=== PATIENT | female | born 1990 | race Caucasian/White ===

== ENCOUNTER 2016-10-02 11:11 | Day surgery (SDC) ==
[2014-01-22 13:35] VITALS: BMI 38.4
[2016-10-02] MEDS ORDERED: LIDOCAINE 1% 20 ML MDV ID ONE (11:51)
[2016-10-02] MEDS ORDERED: LIDOCAINE 1% 20 ML MDV ONE (11:51)
[2016-10-02] MEDS ORDERED: ALBUTEROL 0.083% NEB NEB STA (11:53)
[2016-10-02 11:54] LABS: URINE PREGNANCY INTERNAL QC INTERNAL QC VALID
[2016-10-02] MEDS ORDERED: SUFENTA IVP ONE (12:30)
[2016-10-02] MEDS ORDERED: NEOSTIGMINE IVP ONE (12:30)
[2016-10-02] MEDS ORDERED: ZEMURON ONE (12:30)
[2016-10-02] MEDS ORDERED: VERSED ONE (12:30)
[2016-10-02] MEDS ORDERED: DIPRIVAN 20 ML VIAL IVP ONE (12:30)
[2016-10-02] MEDS ORDERED: ROBINOL ONE (12:30)
[2016-10-02 15:17] VITALS: BP 116/74; TEMP 97.8
--- NOTE | 2016-10-04 13:09 | OP ---
PREOPERATIVE DIAGNOSIS: TONSILLITIS POSTOPERATIVE DIAGNOSIS: TONSILLITIS OPERATION: TONSILLECTOMY PROCEDURE: The patient was taken to surgery, placed on the table and general anesthesia was administered. A Morales-Ck mouth gag was inserted and nasopharynx was inspected. No evidence of adenoid tissue noted. The right tonsil was grasped in the area of the superior pole and incision was made along the anterior tonsillar pillar. Dissection carried out inferiorly and tonsil was removed. [id number] suture of 0 chromic was placed at the base of the tongue. Identical procedure was performed of the other tonsil where again figure-of- eight suture of 0 chromic was placed at the base of the tongue. The patient's mouth and oropharynx were irrigated copiously with saline, extubated and the patient returned to the recovery room in satisfactory condition. LEYDI
--- NOTE | 2016-10-04 13:13 | DS ---
DISCHARGE DIAGNOSIS: 1. TONSILLECTOMY SUMMARY: This is a 26-year-old patient who underwent a tonsillectomy on 10/02/16. The patient did well postoperatively and was instructed to return to the office in 3 weeks. Diet as tolerated. Activity as tolerated. The patient was released on Amoxicillin and Tylox with Codeine for pain and Morrow 7.5. MTDD
== END 2016-10-02 15:03 | disposition home or self-care (01) ==
LOC: SURG 11:11
PROVIDERS: ATTEND Otolaryngology
DX: J03.90 Acute tonsillitis, unspecified (principal)
CPT/HCPCS: 81025; 94640

== ENCOUNTER 2017-02-18 08:44 | Emergency (ER) ==
[2017-02-18 08:48] VITALS: BP 147/80; TEMP 97.6; BMI 32.9
--- NOTE | 2017-02-18 10:14 | ED.PDOC ---
General ED Provider: Dr. TJ ESPINOZA Chief Complaint: Foot Pain/Injury Stated Complaint: foot pain left Time Seen by Physician: 09:00 (fall a few days ago) Mode of Arrival: Walk-In Information Source: Patient Exam Limitations: No limitations Primary Care Provider: ANGELICA GONZALEZ Nursing and Triage Documentation Reviewed and Agree: Yes Musculoskeletal Complaint Exam - Ankle/Foot Complaint/Exam Location of Injury: Reports: Left, Ankle, Foot Mechanism of Injury: Reports: Trauma Onset/Duration: fall 3 days ago Symptoms Are: Reports: Still present Onset of Pain: Reports: Days Initial Severity: Moderate Current Severity: Moderate Character: Reports: Aching, Spasmodic Alleviating: Reports: Rest, Position Aggravating: Reports: None Able to Bear Weight: Yes Related History: Reports: Similar episode Gout Risk Factors: Reports: None Related Surgical History: Reports: None Achilles Tendon Abnormality: No Tenderness: Present: Lateral malleolus, Midfoot Limited Range of Motion: Present: Inversion, Eversion Differential Diagnosis: Closed Fracture Review of Systems - Review Of Systems Constitutional: Reports: No symptoms Eyes: Reports: No symptoms Ears, Nose, Mouth, Throat: Reports: No symptoms Respiratory: Reports: No symptoms Cardiac: Reports: No symptoms GI: Reports: No symptoms : Reports: No symptoms Musculoskeletal: Reports: Joint pain Skin: Reports: No symptoms Neurological: Reports: No symptoms Endocrine: Reports: No symptoms Hematologic/Lymphatic: Reports: No symptoms All Other Systems: Reviewed and Negative Past Medical History - Past Medical History Previously Healthy: Yes Endocrine: Reports: None Cardiovascular: Reports: None Respiratory: Reports: None Hematological: Reports: None Gastrointestinal: Reports: None Genitourinary: Reports: None Neuro/Psych: Reports: None Musculoskeletal: Reports: None Cancer: Reports: None Last Menstrual Period: 01/11/17 - Surgical History General Surgical History: Reports: None - Family History Family History: Reports: None - Social History Smoking Status: Never smoker Hx Substance Use: No Alcohol Screening: Occasionally Physical Exam - Physical Exam Appearance: Well-appearing, No pain distress, Well-nourished Eyes: MEAGHAN, EOMI, Conjunctiva clear ENT: Ears normal, Nose normal, Oropharynx normal Respiratory: Airway patent, Breath sounds clear, Breath sounds equal, Respirations nonlabored Cardiovascular: RRR, Pulses normal, No rub, No murmur GI/: Soft, Nontender, No masses, Bowel sounds normal, No Organomegaly Musculoskeletal: Limited ROM (left foot no gross evidence of injury) Skin: Warm, Dry, Normal color Neurological: Sensation intact, Motor intact, Reflexes intact, Cranial nerves intact, Alert, Oriented Psychiatric: Affect appropriate, Mood appropriate Interpretation - Radiology Interpretation Radiology Interpretation By: Radiologist Critical Care Note - Critical Care Note Total Time (mins): 0 Course - Course Orders, Labs, Meds: Orders Category Date Time Status ANKLE, LEFT MIN 3 VIEWS Stat RADS 02/18/17 08:58 Taken FOOT, LEFT 3 VIEWS Stat RADS 02/18/17 08:58 Taken Vital Signs: Temp Pulse Resp BP Pulse Ox 02/18/17 08:45 97.6 F 83 16 147/80 H 96 Departure - Departure Time of Disposition: 11:00 Disposition: HOME SELF-CARE Discharge Problem: Injury of foot Instructions: Arthralgia (ED), Foot Sprain (ED) Condition: Good Pt referred to PMD for follow-up: Yes Additional Instructions: Please call your Family Physician as soon as possible to schedule a follow-up appointment. Allergies/Adverse Reactions: Allergies No Known Allergies Allergy (Verified 02/18/17 08:47) Home Medications: Ambulatory Orders Dextroamphetamine/Amphetamine [Adderall 10 mg Tablet] 10 mg PO DAILY 10/02/16 Disposition Discussed With: Patient
--- NOTE | 2017-02-18 10:16 | DI ---
EXAM: Three views of the left ankle. History: Left ankle pain. Findings: No acute fracture or dislocation. No abnormal calcifications or radiopaque foreign bodies . Joint spaces are preserved. Impression: No acute osseous abnormality
--- NOTE | 2017-02-18 10:16 | DI ---
EXAM: Three views of the left foot. History: Left foot trauma. Findings: No acute fracture or dislocation. No abnormal calcifications or radiopaque foreign bodies . Joint spaces are preserved. Impression: No acute osseous abnormality
== END 2017-02-18 10:25 | disposition home or self-care (01) ==
LOC: ED 08:44
DX: M79.672 Pain in left foot (principal); S99.922A Unspecified injury of left foot, initial encounter; W19.XXXA Unspecified fall, initial encounter
CPT/HCPCS: 99283

== ENCOUNTER 2017-05-08 17:13 | Observation (INO) ==
--- NOTE | 2017-05-08 17:56 | ED.PDOC ---
General ED Provider: Dr. TJ ESPINOZA Stated Complaint: chest pain Time Seen by Physician: 17:20 (seen with farhat ) Mode of Arrival: Walk-In Information Source: Patient Exam Limitations: No limitations Nursing and Triage Documentation Reviewed and Agree: Yes Reviewed sepsis parameters & appropriate labs ordered?: Yes System Inflammatory Response Syndrome: Not Applicable Sepsis Protocol: For patient's 13 years and over: Temp is 96.8 and below OR 101 and greater Pulse >90 BPM Resp >20/minute Acutely Altered Mental Status Are patient's symptoms suggestive of a new infection, such as: -Pneumonia -Skin, Soft Tissue -Endocarditis -UTI -Bone, Joint Infection -Implantable Device -Acute Abdominal Infection -Wound Infection -Meningitis -Blood Stream Catheter Infection -Unknown System Inflammatory Response Syndrome: Not Applicable Cardiovascular Complaint Exam - Chest Pain Complaint/Exam Onset: Gradual Duration: 5 hours Symptoms Are: Still present Timing: Constant Length of Chest Pain Episodes: 6 hrs Initial Severity: Mild Current Severity: Mild Location: Reports: Midsternal Pain Radiates: Reports: None Character: Reports: Dull Aggravating: Reports: None Alleviating: Reports: Upright position, Spontaneous resolution Associated Signs and Symptoms: Reports: Cough. Denies: Diaphoresis, Nausea, Vomiting, Fever, Palpitations, Hemoptysis, Back pain, Abdominal pain, Dizziness , Short of air, Calf pain, Calf swelling Related History: Reports: Similar episode Related Surgical History: Reports: None History of Healthcare-Acquired Pneumonia: Reports: No AMI/ACS Risk Factors: Reports: None TAD Risk Factors: Reports: None Pulmonary Embolism Risk Factors: Reports: None Prior Care for this Complaint: No Recent Stress Test: No Recent Echo/LV Function: No JVD Present: No Subcutaneous Emphysema Present: No Diminshed Breath Sounds: No Reproducible Chest Wall Pain: No Bilateral Pulses Present: No Unequal Pulses Noted: No Review of Systems - Review Of Systems Constitutional: Reports: No symptoms Eyes: Reports: No symptoms Ears, Nose, Mouth, Throat: Reports: No symptoms Respiratory: Reports: No symptoms Cardiac: Reports: No symptoms GI: Reports: No symptoms : Reports: No symptoms Musculoskeletal: Reports: No symptoms Skin: Reports: No symptoms Neurological: Reports: No symptoms Endocrine: Reports: No symptoms Hematologic/Lymphatic: Reports: No symptoms All Other Systems: Reviewed and Negative Past Medical History - Past Medical History Previously Healthy: Yes Endocrine: Reports: None Cardiovascular: Reports: None Respiratory: Reports: None Hematological: Reports: None Gastrointestinal: Reports: None Genitourinary: Reports: None Neuro/Psych: Reports: None Musculoskeletal: Reports: None Cancer: Reports: None Last Menstrual Period: Just finished - Surgical History General Surgical History: Reports: None - Family History Family History: Reports: None - Social History Smoking Status: Never smoker Hx Substance Use: No Alcohol Screening: Occasionally Physical Exam - Physical Exam Appearance: Well-appearing, No pain distress, Well-nourished Eyes: MEAGHAN, EOMI, Conjunctiva clear ENT: Ears normal, Nose normal, Oropharynx normal Respiratory: Airway patent, Breath sounds clear, Breath sounds equal, Respirations nonlabored Cardiovascular: RRR, Pulses normal, No rub, No murmur GI/: Soft, Nontender, No masses, Bowel sounds normal, No Organomegaly Musculoskeletal: Normal strength, ROM intact, No edema, No calf tenderness Skin: Warm, Dry, Normal color Neurological: Sensation intact, Motor intact, Reflexes intact, Cranial nerves intact, Alert, Oriented Psychiatric: Affect appropriate, Mood appropriate Physician Notification - Case Discussed Physician Notified: sita Time of Notification: 19:00 Critical Care Note - Critical Care Note Total Time (mins): 0 Course - Course Hematology/Chemistry: 05/08/17 17:38 Orders, Labs, Meds: Lab Review 05/08/17 05/08/17 17:38 17:38 WBC 8.89 RBC 4.60 Hgb 13.1 Hct 39.4 MCV 85.7 MCH 28.5 MCHC 33.2 RDW Coeff of Ian 13.1 Plt Count 303 Immature Gran % (Auto) 0.3 Neut % (Auto) 65.0 Lymph % (Auto) 25.9 [place] % (Auto) 6.9 Eos % (Auto) 1.5 Baso % (Auto) 0.4 Immature Gran # (Auto) 0.0 Neut # 5.8 Lymph # 2.3 [place] # 0.6 Eos # 0.1 Baso # 0.0 Serum , Qual Negative Orders Category Date Time Status EKG-(ED ONLY) Stat CARDIO 05/08/17 17:17 Ordered CBC W/ AUTO DIFF Stat LAB 05/08/17 17:38 Completed COMPREHENSIVE METABOLIC PANEL Stat LAB 05/08/17 17:38 Received CREATINE KINASE Stat LAB 05/08/17 17:38 Received SERUM Stat LAB 05/08/17 17:38 Completed TROPONIN I Stat LAB 05/08/17 17:38 Received CHEST, 2 VIEWS PA & LAT Stat RADS 05/08/17 17:17 Ordered Vital Signs: Temp Pulse Resp BP Pulse Ox 05/08/17 17:16 98.5 F 77 20 133/83 98 KEN Risk Score KEN Risk Score: Risk Score Odds of by 30D 0 0.1 (0.1-0.2) 1 0.3 (0.2-0.3) 2 0.4 (0.3-0.5) 3 0.7 (0.6-0.9) 4 1.2 (1.0-1.5) 5 2.2 (1.9-2.6) 6 3.0 (2.5-3.6) 7 4.8 (3.8-6.1) Departure - Departure Time of Disposition: 17:56 Disposition: ADMITTED INPATIENT Discharge Problem: Chest pain Qualifiers: Chest pain type: unspecified Qualified Code(s): R07.9 - Chest pain, unspecified Instructions: Chest Pain (ED) Condition: Good Pt referred to PMD for follow-up: Yes IPMP verified?: No Additional Instructions: Please call your Family Physician as soon as possible to schedule a follow-up appointment. Allergies/Adverse Reactions: Allergies No Known Allergies Allergy (Verified 05/08/17 17:25) Home Medications: Ambulatory Orders Dextroamphetamine/Amphetamine [Adderall 10 mg Tablet] 10 mg PO DAILY 10/02/16 Disposition Discussed With: Patient, Family
[2017-05-08] MEDS ORDERED: SODIUM CHLORIDE 1,000 ML IV SCH (18:00)
[2017-05-08] MEDS ORDERED: ASPIRIN CHEWABLE PO STA (18:01)
--- NOTE | 2017-05-08 18:38 | DI ---
EXAM: Chest two views HISTORY: Pain, tightness COMPARISON: 01/22/2014 TECHNIQUE: Two views of the chest were performed FINDINGS: The lungs are clear. There is no pleural effusion or pneumothorax. The heart is normal i n size. The mediastinal contour is normal. There are no acute abnormalities of the bones. IMPRESSION: No acute cardiopulmonary process.
[2017-05-08 20:03] VITALS: BMI 44.5
[2017-05-09] MEDS ORDERED: GI COCKTAIL PO STA (08:51)
[2017-05-09] MEDS ORDERED: ZANTAC PO SCH (09:00)
[2017-05-09 10:33] VITALS: BP 108/61; TEMP 97.5
[2017-05-09] MEDS ORDERED: CARAFATE PO SCH (11:00)
--- NOTE | 2017-05-13 11:59 | DS ---
DATE OF SERVICE: 05/09/17 FINAL DIAGNOSIS: 1. CHEST PAIN, MIDSTERNAL NONCARDIAC 2. ADHD 3. 4. CYST REMOVED FROM THE LEFT EYE 5. NEVER SMOKER 6. NO ALCOHOL 7. FAMILY HISTORY OF CORONARY ARTERY DISEASE 8. GERD DISCHARGE INSTRUCTIONS: Discharge home. Followup with primary care provider as soon as possible. Outpatient echocardiogram is scheduled on 05/16/17 at 6:30 a.m. MEDICATIONS AT DISCHARGE: Adderall 10 mg p.o. daily NEW PRESCRIPTIONS: Zantac 150 mg take one tablet p.o. twice daily before meals Carafate 1 gm take one tablet by mouth before meals and at bedtime DIET INSTRUCTIONS: Healthy Heart ACTIVITY: Get plenty of rest at home. Gradually increase your activity level according to your toleration. SMOKING: Never a smoker DISEASE SPECIFIC EDUCATION: Lifestyle modifications, weight loss and diet discussed Chest pain, GERD discussed HOSPITAL COURSE: This is a 27-year-old female who came to the emergency room with left-sided chest pain. With the patient's family history the patient was admitted overnight to rule out coronary syndrome. Because of the patient's age 27, atypical chest pain, no medical issues, the patient was observed overnight. TSH and cholesterol levels were normal. Sugars were normal. EKG was normal sinus rhythm. Outpatient echocardiogram was scheduled and the patient was discharged home. TIME SPENT: MORE THAN 65 MINUTES MTDD
--- NOTE | 2017-05-13 12:55 | HP ---
DATE OF SERVICE: 05/08/17 CHIEF COMPLAINT: Chest pain. HISTORY OF PRESENT ILLNESS: This is a 27-year-old female who came to the emergency room with chest tightness and chest pain on the left side while working at [employer]. She had nausea, no vomiting, no sweating, no radiation of the pain. The patient had a similar episode 2 to 3 years ago and was admitted to [facility] and they found no reason. History of anxiety. No fever, no chills. No PND, no orthopnea. Not related to exertion. Nothing makes it better. No radiation, no palpitation, not short of breath. Dr. Barry saw the patient in the emergency room. Initial blood work was normal. EKG normal sinus rhythm. At that time, the patient was admitted to observation to rule out acute coronary syndrome. REVIEW OF SYSTEMS: CONSTITUTIONAL: No fever, no chills. HEENT: Normal. ENDOCRINE: No weight gain; no weight loss. CVS: Chest pain. No PND, no orthopnea. Shortness of breath. No PND, no orthopnea. RESPIRATORY: No cough, no congestion. No hemoptysis. GI: No nausea. No vomiting. No abdominal pain. No melena. : No hematuria. No polyuria. MUSCULOSKELETAL: No joint swelling. PSYCHIATRIC: History of anxiety. No depression. No suicidal thoughts. No homicidal thoughts. SKIN: Intact, no open lesions. PAST MEDICAL HISTORY: Nicotine use Asthmatic bronchitis PAST SURGICAL HISTORY: Cyst removed from eye PERSONAL HISTORY: Secondhand smoke. No alcohol. No illicit drug use. FAMILY HISTORY: Significant for GA, breast cancer. MEDICATIONS: (Home) Adderall ALLERGIES: NKDA PHYSICAL EXAMINATION: V/S: BP 109/65, respiratory rate 16, heart rate 86, temperature 97.6, saturation is 98. HEENT: Atraumatic, normocephalic. No scleral icterus. Pallor positive. Mucosa dry. NECK: Supple. No JVD, no bruit. No lymphadenopathy. No thyromegaly. HEART: S1, S2 normal. No murmur. No cyanosis or clubbing. No ascites. LUNGS: Bilateral entry is decreased and clear to auscultation. No rales or rhonchi. ABDOMEN: Soft, nontender. Bowel sounds are active. No CVA tenderness. No rigidity or guarding. EXTREMITIES: No cyanosis, clubbing or pedal edema. MUSCULOSKELETAL: Normal joints, no swelling. NEUROLOGIC: The patient is awake, alert. SKIN: Intact; no open lesions. LYMPHATIC: No lymph nodes palpable. LABS: Sodium 140, potassium 4.0, chloride 107, bicarb 24, BUN 11, creatinine 0.74, glucose 94. White count 8.89, hemoglobin 13.1, hematocrit 39.4, platelet count 303. ASSESSMENT: 1. CHEST PAIN, RULE OUT ACS. 2. OBESITY. 3. FAMILY HISTORY OF CORONARY ARTERY DISEASE. PLAN: 1. Admit patient to observation 2. TSH, lipids in the morning 3. Lifestyle modifications discussed TIME SPENT: MORE THAN 70 minutes MTDD
== END 2017-05-09 14:15 | disposition home or self-care (01) ==
LOC: ED 17:13 → INTOOBSV 18:18 → MEDSURG B 18:18
PROVIDERS: ADMIT Emergency Medicine; ATTEND Emergency Medicine
DX: R07.89 Other chest pain (principal); R05 Cough; F90.9 Attention-deficit hyperactivity disorder, unspecified type; K21.9 Gastro-esophageal reflux disease without esophagitis; Z82.49 Family history of ischemic heart disease and other diseases of the circulatory system
CPT/HCPCS: 36415; 80053; 80061; 80306; 82550; 84439; 84443; 84484; 84703; 85025; 93005; 93010; 99284

== ENCOUNTER 2018-05-09 09:19 | Outpatient (CLI) | payer MEDICAID, OTHER | END 2018-05-09 09:20 | disposition home or self-care (01) | LOC: RHC-LAB 09:19 | PROVIDERS: ATTEND Nurse Practitioner Family | DX: Z91.89 Other specified personal risk factors, not elsewhere classified (principal) | CPT/HCPCS: 81001 ==